=== PATIENT | male | born 1990 | race Caucasian/White ===

== ENCOUNTER 2017-09-07 17:06 | Emergency (ER) | payer OTHER, SELFPAY ==
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
[2017-09-07] MEDS ORDERED: Ketorolac Tromethamine 30 MG/ML VIAL ONE (18:13)
[2017-09-07] MEDS ORDERED: traMADol HCl 50 MG TAB ONE (19:23)
== END 2017-09-07 19:39 | disposition home or self-care (01) ==
LOC: ERS 17:06
DX: S42.022A Displaced fracture of shaft of left clavicle, initial encounter for closed fracture (principal); V29.9XXA Motorcycle rider (driver) (passenger) injured in unspecified traffic accident, initial encounter
CPT/HCPCS: 96372; J1885